=== PATIENT | male | born 1995 | race Caucasian/White ===

== ENCOUNTER 2017-10-12 19:48 | Observation (INO) | payer BC ==
[~2017-10-12] VITALS: Ht 180.3 cm; Wt 72.7 kg
[2017-10-12 21:05] LABS: HEMATOCRIT 43.8 % (38.0-50.0); HEMOGLOBIN 15.5 G/DL (12.5-16.6); MCHC 35.4 G/DL (30.0-36.0); MCV 81.9 FL (86-99); PLATELET COUNT 314 K/uL (156-360); RBC DIS.WIDTH-CV 12.5 % (11.8-14.6); RBC DIS.WIDTH-SD 36.9 % (39-53); RED BLOOD COUNT 5.35 M/uL (4.00-5.50)
[2017-10-12 21:26] LABS: CHLORIDE 107 mEq/L (99-109); MAGNESIUM 2.6 mg/dL (1.3-2.7); POTASSIUM 3.1 mEq/L (3.7-5.4); SODIUM 144 mEq/L (136-147)
[2017-10-12 21:28] LABS: GLUCOSE 97 mg/dL (70-99)
[2017-10-12 21:31] LABS: SERUM ETHYL ALCOHOL < 10 mg/dL
[2017-10-12 21:32] LABS: CREATININE 1.2 mg/dL (0.6-1.3); GFR ESTIMATE (CALCULATED) > 59 mL/min/ (58.99-99999)
[2017-10-12 21:33] LABS: UREA NITROGEN (BUN) 21 mg/dL (9-23)
[2017-10-12 21:35] LABS: ACETAMINOPHEN (TYLENOL) < 10 mcg/mL (10-30); SALICYLATE < 5.0 MG/DL (15-30)
[2017-10-12 21:36] LABS: TROP-I INTERPRETATION NEGATIVE; TROPONIN-I 0.03 ng/mL (0.0-0.30)
[2017-10-13 00:09] LABS: TROPONIN-I 0.05 ng/mL (0.0-0.30)
[2017-10-13 00:10] LABS: TROP-I INTERPRETATION NEGATIVE
[2017-10-13 01:56] LABS: CREATINE KINASE 500 IU/L (1-294)
[2017-10-13 04:19] LABS: BASOPHIL (%) 0.3 % (0-1); BASOPHIL COUNT 0.1 K/uL (0-0.1); EOSINOPHIL (%) 0 % (0-5); HEMATOCRIT 39.4 % (38.0-50.0); IMMATURE GRANULOCYTE (%) 0.5 % (0.0-0.7); LYMPHOCYTE (%) 15.4 % (15-42); LYMPHOCYTE COUNT 2.3 K/uL (1.0-2.8); MCH 28.6 PG (29.0-34.0); MCHC 34.3 G/DL (30.0-36.0); MCV 83.5 FL (86-99); MONOCYTE (%) 7.4 % (3-12); MONOCYTE COUNT 1.1 K/uL (0-0.8); NEUTROPHIL (%) 76.4 % (45-76); NEUTROPHIL COUNT 11.5 K/uL (1.8-6.4); PLATELET COUNT 273 K/uL (156-360); RBC DIS.WIDTH-CV 12.5 % (11.8-14.6); RBC DIS.WIDTH-SD 37.8 % (39-53); RED BLOOD COUNT 4.72 M/uL (4.00-5.50); WHITE BLOOD COUNT 15.1 K/uL (4.1-10.2)
[2017-10-13 04:20] LABS: HEMOGLOBIN 13.5 G/DL (12.5-16.6)
[2017-10-13 04:29] LABS: CHLORIDE 114 mEq/L (99-109); POTASSIUM 3.2 mEq/L (3.7-5.4); SODIUM 144 mEq/L (136-147)
[2017-10-13 04:31] LABS: GLUCOSE 94 mg/dL (70-99)
[2017-10-13 04:32] LABS: TOTAL PROTEIN 6.4 g/dL (6.4-8.3)
[2017-10-13 04:33] LABS: TOTAL BILIRUBIN 1.2 mg/dL (0.0-1.0)
[2017-10-13 04:35] LABS: ALKALINE PHOSPHATASE 49 IU/L (3-129); CREATININE 0.9 mg/dL (0.6-1.3); GFR ESTIMATE (CALCULATED) > 59 mL/min/ (58.99-99999)
[2017-10-13 04:36] LABS: UREA NITROGEN (BUN) 20 mg/dL (9-23)
[2017-10-13 04:37] LABS: AST (GOT) 19 IU/L (2-34)
[2017-10-13 04:38] LABS: ALT (GPT) 38 IU/L (3-49); CREATINE KINASE 349 IU/L (1-294); TOTAL CK 349 IU/L (1-294)
[2017-10-13 04:40] LABS: TROP-I INTERPRETATION NEGATIVE; TROPONIN-I 0.04 ng/mL (0.0-0.30)
[2017-10-13 04:44] LABS: CK-MB 1.1 ng/mL (0.0-4.9); CKMB RELATIVE INDEX 0.3 (0.0-3.9)
[2017-10-13 04:52] LABS: APPEARANCE CLEAR ((CLEAR)); BILIRUBIN NEGATIVE; BLOOD LARGE; COLOR YELLOW ((YELLOW)); GLUCOSE (STRIP) NEGATIVE; KETONES 80; LEUKOCYTES NEGATIVE; NITRITE NEGATIVE; PROTEIN (STRIP) 100; SPECIFIC GRAVITY 1.044 (1.000-1.030); UROBILINOGEN 0.2 MG/DL (0.2-1.0)
[2017-10-13 05:11] LABS: AMPHETAMINE NEGATIVE (500 ng/mL); BARBITURATES NEGATIVE (200 ng/mL); BENZODIAZEPINES NEGATIVE (150 ng/mL); BUPRENORPHINE NEGATIVE (10 ng/mL); COCAINE NEGATIVE (150 ng/mL); METHADONE NEGATIVE (200 ng/mL); METHAMPHETAMINE NEGATIVE (500 ng/mL); OPIATES (MORPHINE) NEGATIVE (100 ng/mL); OXYCODONE PRESUMPTIVE POSITIVE (100 ng/mL); PHENCYCLIDINE NEGATIVE (25 ng/mL); PROPOXYPHENE NEGATIVE (300 ng/mL); THC CANNABINOIDS NEGATIVE (50 ng/mL); TRICYCLIC ANTIDEPRESSANTS NEGATIVE (300 ng/mL)
[2017-10-13 05:20] LABS: BACTERIA 1+ /HPF; EPITHELIAL CELLS RARE /HPF; MUCUS 3+ /LPF; RED BLOOD CELLS TNTC /HPF (0-5); WHITE BLOOD CELLS 0-5 /HPF (0-5)
[2017-10-13 06:04] VITALS: BP 138/85
[2017-10-13 09:22] LABS: TROP-I INTERPRETATION NEGATIVE; TROPONIN-I 0.03 ng/mL (0.0-0.30)
[2017-10-13 09:33] VITALS: BP 125/62
[2017-10-13 12:01] VITALS: BP 127/82
[2017-10-13 16:03] LABS: HEMOGLOBIN 13.6 G/DL (12.5-16.6); MCV 83.2 FL (86-99)
[2017-10-13 16:44] VITALS: BP 123/64
[2017-10-13 20:00] VITALS: BP 134/70
[2017-10-14 00:33] VITALS: BP 117/68
[2017-10-14 04:00] VITALS: BP 117/70
[2017-10-14 08:47] LABS: HEMATOCRIT 39.7 % (38.0-50.0); HEMOGLOBIN 13.7 G/DL (12.5-16.6); MCH 28.8 PG (29.0-34.0); MCHC 34.5 G/DL (30.0-36.0); MCV 83.6 FL (86-99); PLATELET COUNT 252 K/uL (156-360); RBC DIS.WIDTH-CV 12.5 % (11.8-14.6); RBC DIS.WIDTH-SD 38.2 % (39-53); RED BLOOD COUNT 4.75 M/uL (4.00-5.50); WHITE BLOOD COUNT 12.2 K/uL (4.1-10.2)
[2017-10-14 09:18] LABS: CHLORIDE 109 MEQ/L (99-109); CREATININE 0.8 MG/DL (0.6-1.3); GFR ESTIMATE (CALCULATED) > 59 mL/min/ (58.99-99999); GLUCOSE 105 mg/dL (70-99); POTASSIUM 3.3 MEQ/L (3.7-5.4); SODIUM 141 MEQ/L (136-147); UREA NITROGEN (BUN) 9 mg/dL (9-23)
[2017-10-14 11:37] VITALS: BP 127/60
[2017-10-14 15:18] VITALS: BP 131/70
[2017-10-14 20:00] VITALS: BP 127/73
[2017-10-15 00:08] VITALS: BP 133/67
[2017-10-15 04:04] VITALS: BP 125/75
[2017-10-15 08:44] LABS: HEMOGLOBIN 13.9 G/DL (12.5-16.6); MCH 28.3 PG (29.0-34.0); MCHC 33.9 G/DL (30.0-36.0); MCV 83.3 FL (86-99); PLATELET COUNT 257 K/uL (156-360); RBC DIS.WIDTH-CV 12.3 % (11.8-14.6); RBC DIS.WIDTH-SD 37.4 % (39-53); RED BLOOD COUNT 4.92 M/uL (4.00-5.50); WHITE BLOOD COUNT 11.9 K/uL (4.1-10.2)
[2017-10-15 08:45] VITALS: BP 118/76
[2017-10-15 09:06] LABS: CHLORIDE 110 MEQ/L (99-109); CREATININE 0.8 MG/DL (0.6-1.3); GFR ESTIMATE (CALCULATED) > 59 mL/min/ (58.99-99999); GLUCOSE 105 mg/dL (70-99); POTASSIUM 3.8 MEQ/L (3.7-5.4); SODIUM 139 MEQ/L (136-147); UREA NITROGEN (BUN) 5 mg/dL (9-23)
[2017-10-15 11:33] LABS: HEPATITIS B SURFACE ANTIGEN Nonreactive
[2017-10-15 11:34] LABS: HEPATITIS C ANTIBODY Nonreactive
[2017-10-15 11:39] VITALS: BP 110/60
[2017-10-15 15:14] VITALS: BP 120/67
== END 2017-10-15 16:31 | disposition home or self-care (01) ==
LOC: EME 19:48 → 5WEST 10-13 02:23 → EDOF 10-13 02:23 → ENRESERV 10-13 02:24 → 5WEST 10-13 05:54
PROVIDERS: Emergency Medicine; Hospitalist; Internal Medicine; Internal Medicine Infectious Disease; Nurse Practitioner Adult Health
DX: R94.31 Abnormal electrocardiogram [ECG] [EKG] (principal); R00.1 Bradycardia, unspecified; T40.991A Poisoning by other psychodysleptics [hallucinogens], accidental (unintentional), initial encounter; F19.10 Other psychoactive substance abuse, uncomplicated; I27.20 Pulmonary hypertension, unspecified; D72.829 Elevated white blood cell count, unspecified; R41.0 Disorientation, unspecified; R14.0 Abdominal distension (gaseous); M62.82 Rhabdomyolysis; E86.0 Dehydration; E87.6 Hypokalemia; F17.210 Nicotine dependence, cigarettes, uncomplicated
CPT/HCPCS: 71046; 80048; 80053; 81003; 82550; 82550 91; 82553; 83735; 84443; 84484; 85014; 85018; 85025; 85027; 86803; 87040; 87340; 93005; 93306; 99281; 99285; G0378; G0480; J2060; J2250; J3480; J7030